=== PATIENT | female | born 1950 | race African-American/Black ===

== ENCOUNTER → 2017-06-18 | Outpatient (CLI) | payer MEDICARE, MEDICAID ==
[~2017-06-18] MED LIST: ULTRAM 50MG TAB50 MG PO
== END ==
LOC: MC.RAD 10:52
DX: Z12.31 Encounter for screening mammogram for malignant neoplasm of breast (principal)

== ENCOUNTER → 2017-06-22 | Outpatient (CLI) | payer MEDICARE, MEDICAID | LOC: MC.RAD 12:59 | DX: N60.02 Solitary cyst of left breast (principal); N63 Unspecified lump in breast ==

== ENCOUNTER 2018-04-26 13:09 | Day surgery (SDC) | payer MEDICARE, MEDICAID ==
[~2018-04-26] VITALS: Ht 165.1 cm; Wt 93.5 kg
[2018-04-26 13:46] VITALS: BP 135/85; PULSE 61; TEMP 98.3
[2018-04-26 15:20] VITALS: BP 136/86; PULSE 66; TEMP 98.7
[2018-04-26 15:35] VITALS: BP 133/79; PULSE 65
[2018-04-26 15:50] VITALS: BP 134/77; PULSE 55
== END 2018-04-26 16:10 | disposition home or self-care (01) ==
LOC: SDCO 13:09
DX: Z12.11 Encounter for screening for malignant neoplasm of colon (principal); K63.5 Polyp of colon; K64.0 First degree hemorrhoids; K57.30 Diverticulosis of large intestine without perforation or abscess without bleeding
CPT/HCPCS: OP; J2250; J3010; J7030

== ENCOUNTER → 2018-12-09 | Outpatient (CLI) | payer MEDICARE | LOC: MC.RAD 13:24 | DX: Z12.31 Encounter for screening mammogram for malignant neoplasm of breast (principal) ==

== ENCOUNTER → 2020-07-15 | Outpatient (CLI) | payer MEDICARE | LOC: MC.RAD 05-14 11:00 | DX: Z12.31 Encounter for screening mammogram for malignant neoplasm of breast (principal) ==

== ENCOUNTER 2021-07-28 08:30 | Outpatient (RCR) | payer MEDICARE | END 2021-09-17 13:15 | disposition home or self-care (01) | LOC: WSPT 08:30 | DX: M19.011 Primary osteoarthritis, right shoulder (principal); M19.012 Primary osteoarthritis, left shoulder; M62.9 Disorder of muscle, unspecified; S63.501A Unspecified sprain of right wrist, initial encounter ==

== ENCOUNTER → 2021-08-05 | Outpatient (CLI) | payer MEDICARE | LOC: MC.RAD 13:30 | DX: Z12.31 Encounter for screening mammogram for malignant neoplasm of breast (principal); Z00.00 Encounter for general adult medical examination without abnormal findings ==

== ENCOUNTER 2021-08-06 09:00 | Outpatient (RCR) | payer MEDICARE | END 2021-09-17 13:16 | disposition home or self-care (01) | LOC: WSPT 09:00 | DX: M48.062 Spinal stenosis, lumbar region with neurogenic claudication (principal) ==

== ENCOUNTER → 2023-11-04 | Outpatient (CLI) | payer MEDICARE, MEDICAID | LOC: MC.RAD 09:15 | DX: Z12.31 Encounter for screening mammogram for malignant neoplasm of breast (principal) ==

== ENCOUNTER → 2024-07-26 | Outpatient (CLI) | payer MEDICARE, MEDICAID | LOC: COL.RAD 08:41 | DX: N28.1 Cyst of kidney, acquired (principal); R74.8 Abnormal levels of other serum enzymes ==